=== PATIENT | female | born 2000 ===

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

== ENCOUNTER 2022-09-10 08:10 | Outpatient (CLI) | payer OTHER | END 2022-09-10 08:12 | disposition home or self-care (01) | LOC: RX STUDY 08:10 | DX: R13.13 Dysphagia, pharyngeal phase (principal); R13.14 Dysphagia, pharyngoesophageal phase ==

== ENCOUNTER 2024-02-27 09:24 | Outpatient (CLI) | payer OTHER | END 2024-02-27 09:28 | disposition home or self-care (01) | LOC: SONOGRAMA 09:24 | PROVIDERS: ATTEND Pathology Anatomic Pathology | DX: E04.2 Nontoxic multinodular goiter (principal) ==